=== PATIENT | male | born 1940 | race American Indian/Alaskan Native ===

== ENCOUNTER 2019-09-04 12:46 | Emergency (ER) | payer MEDICARE ==
[2019-09-04] MEDS ORDERED: TETANUS,DIPH,PERTUSS(ACELL) VACCINE 0.5 ML SYRINGE IM ONE (13:27)
--- NOTE | 2019-09-04 14:15 | Cat Scan Report ---
NONENHANCED CT SCAN OF THE HEAD: INDICATION / CLINICAL INFORMATION: 79 years Male; MAIN: fall, head injury LAC TO FOREHEAD LOC. TECHNIQUE: Routine CT head without contrast. All CT scans at this location are performed using CT dos e reduction for ALARA by means of automated exposure control. COMPARISON: None. FINDINGS: BRAIN / INTRACRANIAL CONTENTS: No intracranial sequela from the trauma; right frontal scalp hematoma; no air-fluid level in the visualized portions of the paranasal sinuses. No acute hemorrhage, mass effect, midline shift, hydrocephalus, or acute, large territorial infarct. Encephalomalacia is seen in the left frontal lobe and in the right cerebellar hemisphere. Periventri cular low attenuation areas are seen due to chronic microvascular angiopathy. CRANIOCERVICAL JUNCTION: No significant abnormality. ORBITS: No significant abnormality of visualized orbits. SINUSES / MASTOIDS: No significant abnormality of the visualized paranasal sinuses or mastoid air jada ls. ADDITIONAL FINDINGS: None. IMPRESSION: No intracranial sequela from the trauma; small right supraorbital scalp hematoma Signer Name: Bella Kimball MD Signed: 09/04/2019 2:11 PM Workstation Name: [id number]
[2019-09-04 14:18] LABS: Basophils % (Auto) 0.4 % (0.0-1.8); Eosinophils # (Auto) 0.1 K/mm3 (0.0-0.4); Eosinophils % (Auto) 1.7 % (0.0-4.3); Hematocrit 32.2 % (35.5-45.6); Hemoglobin 10.6 gm/dl (11.8-15.2); Lymphocytes # (Auto) 1.4 K/mm3 (1.2-5.4); Mean Corpuscular HGB Conc 33 % (32-34); Mean Corpuscular Volume 92 fl (84-94); Monocytes # (Auto) 0.6 K/mm3 (0.0-0.8); Monocytes % (Auto) 9.7 % (0.0-7.3); Platelet Count 132 K/mm3 (140-440); Red Blood Count 3.49 M/mm3 (3.65-5.03); Red Cell Distribution Width 15.8 % (13.2-15.2)
--- NOTE | 2019-09-04 14:22 | Cat Scan Report ---
Exam: CT cervical spine History: fall, head injury; Technique: Contiguous thin cut axial images obtained through the cervical spine. Sagittal and begum l reconstructions performed by the technologist. All CT scans at this location are performed using CT dose reduction for ALARA by means of automated exposure control. Findings: No priors. There is no evidence of fracture or traumatic subluxation. Vertebral bodies are normal in height and alignment. Disc spaces are narrowed at C3-C4, C5-C6 and C6-C7 disc levels. At C3-C4 disc level, bony spur is see n more towards the right side. Neuroforamina are normal. Nonlateralizing midline disc protrusion is s een at C4-C5 disc level. Neuroforamina are normal. Shallow bony spur is seen C5-C6 disc level extending laterally bilaterally more towards the right micheal e. Right neuroforamen is narrowed. Shallow bony spur is also seen at C6-C7 level. Surrounding soft tissues are grossly normal. Impression: No signs of acute bony trauma to the cervical spine. Signer Name: Bella Kimball MD Signed: 09/04/2019 2:17 PM Workstation Name: [id number]
[2019-09-04 14:36] VITALS: BP 123/66
[2019-09-04 14:42] LABS: Calcium 9.2 mg/dL (8.4-10.2)
[2019-09-04] MEDS ORDERED: POTASSIUM CHLORIDE 20 MEQ PACKET FEEDTUBE ONE (14:43)
--- NOTE | 2019-09-04 14:48 | Emergency Department Report ---
ED Fall HPI - General Chief Complaint: Fall Stated Complaint: FALL/HEAD LAC Time Seen by Provider: 09/04/19 14:42 Source: EMS Mode of arrival: Stretcher Limitations: No Limitations - History of Present Illness Initial Comments: 79-year-old male past medical history CHF, diabetes, CVA with right-sided deficits, defibrillator, hypertension, and possible dementia currently enrolled in home hospice presents to the hospital after fall at rehabilitation place. My present at bedside it apparently has dementia herself therefore she got daughter to come to the bedside to aid in history of present illness. Apparently patient has been accepted to rehabilitation facility 5 days to give his a break at home. Patient went to rehabilitation place yesterday. Apparently he fell out of the bed and was found with head injury and laceration to right forehead. Fall was unwitnessed. Patient is not ambulatory and wheelchair bound at baseline. Patient does not complain of any specific pain. He is oriented to self, states year is 1940 (which is his year), and thinks he is in a different city in [place]. Daughter states pt is at his baseline mental status. - Related Data Allergies Allergy/AdvReac Type Severity Reaction Status Date / Time No Known Allergies Allergy Unverified 09/04/19 13:05 ED Review of Systems ROS: Stated complaint: FALL/HEAD LAC Other details as noted in HPI Comment: All other systems reviewed and negative ED Past Medical Hx - Past Medical History Previous Medical History?: Yes Hx Hypertension: Yes Hx Congestive Heart Failure: Yes Hx Diabetes: Yes - Surgical History Additional Surgical History: defibrilator - Social History Smoking Status: Unknown if ever smoked ED Physical Exam - General Limitations: No Limitations - Other Other exam information: General: No limitations, patient is alert in no acute distress Head exam: 2cm Laceration to right forehead above the brow Eyes exam: Normal appearance ENT: Moist mucous membrane Neck exam: Normal inspection, full range of motion Respiratory exam: Clear to auscultation bilateral, no wheezes, rales, crackles Cardiovascular: Normal rate and rhythm Abdomen: Soft, nondistended, and nontender, with normal bowel sounds, no re bound, or guarding, Extremity: mild swelling and pain to right middle mip joint with limited extens ion Back: Normal Inspection Neurologic: Alert, oriented 1, speech clear, no facial droop, 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, right leg strength 4/5, left leg strength 5/5 Psychiatric: Normal mood, affect Skin: No rash ED Course Vital Signs 09/04/19 09/04/19 13:09 14:35 Temperature 98.0 F 98.4 F Pulse Rate 70 74 Respiratory 18 16 Rate Blood Pressure 114/67 123/66 [Left] O2 Sat by Pulse 99 100 Oximetry - Laceration /Wound Repair Right Face Wound Location: face (right forehead) Wound Length (cm): 2 Wound's Depth, Shape: linear Wound Explored: clean Irrigated w/ Saline (ccs): 20 Betadine Prep?: Yes Wound Repaired With: Dermabond Layer Closure?: No Sterile Dressing Applied?: Yes ED Medical Decision Making - Lab Data Result diagrams: 09/04/19 14:10 09/04/19 14:10 - Radiology Data Radiology results: report reviewed NONENHANCED CT SCAN OF THE HEAD: INDICATION / CLINICAL INFORMATION: 79 years Male; MAIN: fall, head injury LAC TO FOREHEAD LOC. TECHNIQUE: Routine CT head without contrast. All CT scans at this location are performed using CT dose reduction for ALARA by means of automated exposure control. COMPARISON: None. FINDINGS: BRAIN / INTRACRANIAL CONTENTS: No intracranial sequela from the trauma; right frontal scalp hematoma; no air-fluid level in the visualized portions of the paranasal sinuses. No acute hemorrhage, mass effect, midline shift, hydrocephalus, or acute, large territorial infarct. Encephalomalacia is seen in the left frontal lobe and in the right cerebellar hemisphere. Periventricular low attenuation areas are seen due to chronic microvascular angiopathy. CRANIOCERVICAL JUNCTION: No significant abnormality. ORBITS: No sig nificant abnormality of visualized orbits. SINUSES / MASTOIDS: No significant abnormality of the visualized paranasal sinuses or mastoid air cells. ADDITIONAL FINDINGS: None. IMPRESSION: No intracranial sequela from the trauma; small right supraorbital scalp hematoma Exam: CT cervical spine History: fall, head injury; Technique: Contiguous thin cut axial images obtained through the cervical spine. Sagittal and coronal reconstructions performed by the technologist. All CT scans at this location are performed using CT dose reduction for ALARA by means of automated exposure control. Findings: No priors. There is no evidence of fracture or traumatic subluxation. Vertebral bodies are normal in height and alignment. Disc spaces are narrowed at C3-C4, C5-C6 and C6-C7 disc levels. At C3-C4 disc level, bony spur is seen more towards the right side. Neuroforamina are normal. Nonlateralizing midline disc protrusion is seen at C4-C5 disc level. Neuroforamina are normal. Shallow bony spur is seen C5-C6 disc level extending laterally bilaterally more towards the right side. Right neuroforamen is narrowed. Shallow bony spur is also seen at C6-C7 level. Surrounding soft tissues are grossly normal. Impression: No signs of acute bony trauma to the cervical spine. RIGHT HAND, 3 VIEWS 09/04/2019 INDICATION / CLINICAL INFORMATION: middle finger pain s/p fall. COMPARISON: None available. FINDINGS: There is slight cortical irregularity of the base of the proximal phalanx of the long finger that could represent a nondisplaced fracture. Correlate with location of patient's symptoms. No other skeletal abnormality. - Medical Decision Making Daughter appears to inquire about wanting the patient to be in a longterm and states they're trying to make arrangements as an outpatient. I informed her we cannot admit for longterm placement until can only admit for an acute medical condition requiring inpatient admission. Patient is afebrile and labs only reveal minor renal insufficiency and mild hypokalemia. By mouth potassium provided. CT head and cervical spine do not reveal any acute injury. Steri- Strip applied prior to patient transport was removed and Dermabond was applied t o the wound. Patient received tetanus. Possible abnormality of right middle finger proximal phalanx, finger splint applied. Patient orthopedic follow-up provided - Differential Diagnosis fracture, contusion, ICH Critical Care Time: No Critical care attestation.: If time is entered above; I have spent that time in minutes in the direct care of this critically ill patient, excluding procedure time. ED Disposition Clinical Impression: Face lacerations Fall Qualifiers: Encounter type: initial encounter Qualified Code(s): W19.XXXA - Unspecified fall, initial encounter Finger injury Qualifiers: Encounter type: initial encounter Laterality: right Qualified Code(s): S69.91XA - Unspecified injury of right wrist, hand and finger(s), initial encounter Disposition: - TO HOME OR SELFCARE Is pt being admited?: No Does the pt Need Aspirin: No Condition: Stable Instructions: Finger Fracture (ED), Fall Prevention for Older Adults (ED), Skin Adhesive Care (ED) Additional Instructions: Take Motrin or Tylenol as needed for pain. Follow-up with your doctor or the doctor/clinic provided. Return if symptoms worsen as indicated by your discharge instructions. The right hand x-ray shows a possible bony abnormality of the middle finger but not obvious for fracture/break. Finger splint was placed as a precaution. Outpatient orthopedic follow-up advised Referrals: PRIMARY CAREMD [Primary Care Provider] - 3-5 Days MINAL PAREDES MD [Staff Physician] - 3-5 Days (orthopedic doctor ) Time of Disposition: 16:40
--- NOTE | 2019-09-04 16:23 | XRay Report ---
RIGHT HAND, 3 VIEWS 09/04/2019 INDICATION / CLINICAL INFORMATION: middle finger pain s/p fall. COMPARISON: None available. FINDINGS: There is slight cortical irregularity of the base of the proximal phalanx of the long finger that cou ld represent a nondisplaced fracture. Correlate with location of patient's symptoms. No other skeletal abnormality. Signer Name: Rajiv Brennan MD Signed: 09/04/2019 4:18 PM Workstation Name: [id number]
== END 2019-09-04 17:53 | disposition home or self-care (01) ==
LOC: ED 12:46
DX: S01.81XA Laceration without foreign body of other part of head, initial encounter (principal); S69.91XA Unspecified injury of right wrist, hand and finger(s), initial encounter; I11.0 Hypertensive heart disease with heart failure; I50.9 Heart failure, unspecified; E11.9 Type 2 diabetes mellitus without complications; Z98.890 Other specified postprocedural states; W19.XXXA Unspecified fall, initial encounter; Y93.89 Activity, other specified; Y92.89 Other specified places as the place of occurrence of the external cause; Y99.8 Other external cause status
CPT/HCPCS: 36415; 70450; 72125; 80048; 83735; 85025; 90471; 90715